=== PATIENT | female | born 1985 | race Caucasian/White ===

== ENCOUNTER 2017-12-29 03:37 | Emergency (ER) | payer OTHER ==
[~2017-12-29] VITALS: Ht 167.6 cm; Wt 68.0 kg
[2017-12-29 04:19] LABS: BASOPHILS ABSOLUTE AUTO 0.03 K/mm3 (0.00-0.23); BASOPHILS PERCENT AUTO 1 % (0-2); EOSINOPHILS ABSOLUTE AUTO 0.09 K/mm3 (0.00-0.68); EOSINOPHILS PERCENT AUTO 2 % (0-6); Hematocrit 38.1 % (33.0-51.0); IMMATURE GRAN ABSOLUTE AUTO 0.01 K/mm3 (0.00-0.10); IMMATURE GRAN PERCENT AUTO 0 % (0-1); LYMPHOCYTES ABSOLUTE AUTO 2.12 K/mm3 (0.84-5.20); LYMPHOCYTES PERCENT AUTO 42 % (21-46); MONOCYTES ABSOLUTE AUTO 0.34 K/mm3 (0.16-1.47); MONOCYTES PERCENT AUTO 7 % (4-13); Mean Corpuscular HGB 30.5 pg (26.0-34.0); Mean Corpuscular HGB Conc 34.1 g/dL (31.5-36.5); Mean Corpuscular Volume 89 fL (80-100); Mean Platelet Volume 10.1 fL (9.1-12.4); NEUTROPHILS ABSOLUTE AUTO 2.52 K/mm3 (1.96-9.15); NEUTROPHILS PERCENT AUTO 49 % (41-73); Platelet Count 175 K/mm3 (150-400); RDW Coefficient Variation 11.8 % (11.7-14.2); RDW Standard Deviation 37.8 fL (35.1-46.3); Red Blood Cell Count 4.26 M/mm3 (3.80-5.20); White Blood Cell Count 5.11 K/mm3 (4.00-11.30)
[2017-12-29 04:26] LABS: Source, Urine Clean Catch
[2017-12-29 04:34] LABS: Blood, Urine Neg (Neg); Glucose Qualitative, Urine Neg (Neg); Ketones, Urine Neg (Neg); Leukocyte Esterase, Urine Neg (Neg); Nitrite, Urine Pos (Neg); Protein, Urine 2+ (Neg); Specific Gravity, Urine 1.025 (1.003-1.022); Urobilinogen, Urine 4+ (Normal)
[2017-12-29 04:43] LABS: Bilirubin, Urine 3+ (Neg)
[2017-12-29 04:44] LABS: Appearance, Urine Clear (Clear); Bacteria Mod /hpf; Color, Urine Orange (P-Yellow); Red Blood Cells, Urine Not Seen /hpf (0-2); Squamous Epithelial Cells Few /hpf (Few); White Blood Cells, Urine Rare /hpf (0-5)
[2017-12-29 04:45] LABS: Mucus Light (0-Heavy)
[2017-12-29 04:52] LABS: Alanine Aminotransfer (ALT/SGP 16 U/L (12-78); Albumin, Blood 3.6 g/dL (3.4-5.0); Alk Phos 46 U/L (50-136); Anion Gap 4 mmol/L (6-16); Aspartate Aminotrans (AST/SGOT 13 U/L (12-37); Bilirubin, Total 0.6 mg/dL (0.1-1.0); Blood Urea Nitrogen 18 mg/dL (8-24); CO2, Blood 28 mmol/L (21-32); Calcium, Blood 8.4 mg/dL (8.5-10.1); Chloride, Blood 107 mmol/L (98-108); Creatinine, Blood 0.72 mg/dL (0.40-1.00); Globulin, Blood 3.5 g/dL (2.2-4.0); Glomerular Filtration Rate >60 (60-); Glucose, Blood 115 mg/dL (70-99); Potassium, Blood 3.4 mmol/L (3.5-5.5); Sodium, Blood 139 mmol/L (136-145); Total Protein, Blood 7.1 g/dL (6.4-8.2)
[2017-12-29] MEDS ORDERED: Norco 5-325 Ta1 EACH PO (05:06)
[2017-12-29] MEDS ORDERED: Cipro500 MG PO (05:06)
== END 2017-12-29 05:12 | disposition home or self-care (01) ==
LOC: ER 03:37
PROVIDERS: Emergency Medicine
DX: N12 Tubulo-interstitial nephritis, not specified as acute or chronic (principal); E87.6 Hypokalemia
CPT/HCPCS: 36415; 80053; 81001; 81025; 83690; 85025; 96361; 96374; 96375; 99284; J2270; J2405; J7030

== ENCOUNTER 2018-12-13 22:05 | Emergency (ER) | payer OTHER ==
[~2018-12-13] VITALS: Ht 167.6 cm; Wt 63.5 kg
[~2018-12-13 22:05] MED LIST: Cipro500 MG PO; Norco 5-325 Ta1 EACH PO
[2018-12-13 23:13] LABS: BASOPHILS ABSOLUTE AUTO 0.05 K/mm3 (0.00-0.23); BASOPHILS PERCENT AUTO 1 % (0-2); EOSINOPHILS ABSOLUTE AUTO 0.11 K/mm3 (0.00-0.68); EOSINOPHILS PERCENT AUTO 2 % (0-6); Hemoglobin 13.7 g/dL (11.5-16.0); IMMATURE GRAN ABSOLUTE AUTO 0.02 K/mm3 (0.00-0.10); IMMATURE GRAN PERCENT AUTO 0 % (0-1); LYMPHOCYTES ABSOLUTE AUTO 2.48 K/mm3 (0.84-5.20); LYMPHOCYTES PERCENT AUTO 38 % (21-46); MONOCYTES ABSOLUTE AUTO 0.45 K/mm3 (0.16-1.47); MONOCYTES PERCENT AUTO 7 % (4-13); Mean Corpuscular HGB 31.3 pg (26.0-34.0); Mean Corpuscular HGB Conc 33.4 g/dL (31.5-36.5); Mean Corpuscular Volume 94 fL (80-100); Mean Platelet Volume 9.9 fL (9.1-12.4); NEUTROPHILS ABSOLUTE AUTO 3.41 K/mm3 (1.96-9.15); NEUTROPHILS PERCENT AUTO 52 % (41-73); Platelet Count 196 K/mm3 (150-400); RDW Coefficient Variation 11.7 % (11.7-14.2); RDW Standard Deviation 40.6 fL (35.1-46.3); Red Blood Cell Count 4.38 M/mm3 (3.80-5.20); White Blood Cell Count 6.52 K/mm3 (4.00-11.30)
[2018-12-13 23:34] LABS: Alanine Aminotransfer (ALT/SGP 14 U/L (12-78); Albumin, Blood 3.6 g/dL (3.4-5.0); Albumin/Globulin Ratio 1.1 (0.8-1.8); Alk Phos 54 U/L (50-136); Anion Gap 6 mmol/L (6-16); Aspartate Aminotrans (AST/SGOT 11 U/L (12-37); Bilirubin, Total 0.6 mg/dL (0.1-1.0); Blood Urea Nitrogen 16 mg/dL (8-24); Bun/Creatinine Ratio 19.3 (12.0-20.0); CO2, Blood 27 mmol/L (21-32); Calcium, Blood 8.2 mg/dL (8.5-10.1); Chloride, Blood 107 mmol/L (98-108); Creatinine, Blood 0.83 mg/dL (0.40-1.00); Globulin, Blood 3.3 g/dL (2.2-4.0); Glomerular Filtration Rate >60 (60-); Glucose, Blood 91 mg/dL (70-99); Potassium, Blood 4.2 mmol/L (3.5-5.5); Sodium, Blood 140 mmol/L (136-145); Total Protein, Blood 6.9 g/dL (6.4-8.2)
[2018-12-13 23:34] LABS: Source, Urine Clean Catch
[2018-12-13 23:37] LABS: Bilirubin, Urine Neg (Neg); Blood, Urine Neg (Neg); Glucose Qualitative, Urine Neg (Neg); Ketones, Urine 1+ (Neg); Leukocyte Esterase, Urine 1+ (Neg); Nitrite, Urine Pos (Neg); Protein, Urine 2+ (Neg); Specific Gravity, Urine 1.025 (1.003-1.022); Urobilinogen, Urine NORM (Normal)
[2018-12-13 23:43] LABS: Color, Urine Yellow (P-Yellow)
[2018-12-13 23:44] LABS: Appearance, Urine Clear (Clear); Bacteria Few /hpf; Mucus Light (0-Heavy); Red Blood Cells, Urine Not Seen /hpf (0-2); Squamous Epithelial Cells Rare /hpf (Few); White Blood Cells, Urine 0-2 /hpf (0-5)
== END 2018-12-14 01:12 | disposition home or self-care (01) ==
LOC: ER 22:05
PROVIDERS: Emergency Medicine
DX: N12 Tubulo-interstitial nephritis, not specified as acute or chronic (principal)
CPT/HCPCS: 36415; 80053; 81001; 81025; 85025; 87086; 96365; 96375; 99284-25; J0696; J1885; J2405; J7030

== ENCOUNTER 2019-06-13 15:36 | Emergency (ER) | payer OTHER ==
[~2019-06-13] VITALS: Ht 167.6 cm; Wt 65.8 kg
[2019-06-13 16:30] LABS: Source, Urine Clean Catch
[2019-06-13 16:32] LABS: Bilirubin, Urine Neg (Neg); Blood, Urine Neg (Neg); Glucose Qualitative, Urine Neg (Neg); Ketones, Urine Neg (Neg); Leukocyte Esterase, Urine Neg (Neg); Nitrite, Urine Neg (Neg); Protein, Urine Neg (Neg); Urobilinogen, Urine NORM (Normal)
[2019-06-13 16:52] LABS: Color, Urine Yellow (P-Yellow)
[2019-06-13 16:53] LABS: Appearance, Urine Clear (Clear)
[2019-06-13 17:24] LABS: BASOPHILS ABSOLUTE AUTO 0.04 K/mm3 (0.00-0.23); BASOPHILS PERCENT AUTO 1 % (0-2); EOSINOPHILS PERCENT AUTO 2 % (0-6); Hematocrit 41.7 % (33.0-51.0); IMMATURE GRAN PERCENT AUTO 0 % (0-1); LYMPHOCYTES ABSOLUTE AUTO 2.39 K/mm3 (0.84-5.20); LYMPHOCYTES PERCENT AUTO 36 % (21-46); MONOCYTES ABSOLUTE AUTO 0.51 K/mm3 (0.16-1.47); MONOCYTES PERCENT AUTO 8 % (4-13); Mean Corpuscular HGB Conc 33.6 g/dL (31.5-36.5); Mean Corpuscular Volume 92 fL (80-100); Mean Platelet Volume 10.2 fL (9.1-12.4); NEUTROPHILS ABSOLUTE AUTO 3.62 K/mm3 (1.96-9.15); NEUTROPHILS PERCENT AUTO 54 % (41-73); Platelet Count 203 K/mm3 (150-400); RDW Standard Deviation 40.8 fL (35.1-46.3); Red Blood Cell Count 4.52 M/mm3 (3.80-5.20); White Blood Cell Count 6.66 K/mm3 (4.00-11.30)
[2019-06-13 17:54] LABS: Alanine Aminotransfer (ALT/SGP 17 U/L (12-78); Albumin, Blood 3.7 g/dL (3.4-5.0); Albumin/Globulin Ratio 1.1 (0.8-1.8); Alk Phos 49 U/L (50-136); Anion Gap 8 mmol/L (6-16); Aspartate Aminotrans (AST/SGOT 12 U/L (12-37); Bilirubin, Total 0.8 mg/dL (0.1-1.0); Blood Urea Nitrogen 13 mg/dL (8-24); Bun/Creatinine Ratio 17.5 (12.0-20.0); CO2, Blood 27 mmol/L (21-32); Calcium, Blood 8.5 mg/dL (8.5-10.1); Chloride, Blood 107 mmol/L (98-108); Creatinine, Blood 0.74 mg/dL (0.40-1.00); Globulin, Blood 3.5 g/dL (2.2-4.0); Glomerular Filtration Rate >60 (60-); Glucose, Blood 88 mg/dL (70-99); Sodium, Blood 142 mmol/L (136-145); Total Protein, Blood 7.2 g/dL (6.4-8.2)
== END 2019-06-13 20:07 | disposition home or self-care (01) ==
LOC: ER 15:36
PROVIDERS: Physician Assistant
DX: N83.201 Unspecified ovarian cyst, right side (principal)
CPT/HCPCS: 36415; 74176; 80053; 81003; 81025; 83690; 85025; 99284-25

== ENCOUNTER 2021-08-31 18:59 | Emergency (ER) | payer OTHER ==
[~2021-08-31] VITALS: Ht 167.6 cm; Wt 68.0 kg
[2021-08-31 22:32] LABS: SARS-Cov-2 (COVID-19) PCR, MMC POSITIVE (NEGATIVE)
== END 2021-08-31 21:56 | disposition left against medical advice (07) ==
LOC: ER 18:59
PROVIDERS: Physician Assistant
DX: U07.1 COVID-19 (principal); Z53.21 Procedure and treatment not carried out due to patient leaving prior to being seen by health care provider
CPT/HCPCS: 93005; 93010; 99283-25; U0004

== ENCOUNTER → 2022-05-06 | Outpatient (CLI) | payer OTHER | END | disposition home or self-care (01) | LOC: LAB SHORT 14:00 | DX: R10.2 Pelvic and perineal pain (principal) | CPT/HCPCS: 87086 ==

== ENCOUNTER 2023-08-02 22:39 | Emergency (ER) | payer OTHER ==
[~2023-08-02] VITALS: Ht 167.6 cm; Wt 65.8 kg
[2023-08-02 23:32] LABS: Source, Urine Clean Catch
[2023-08-02 23:34] LABS: BASOPHILS ABSOLUTE AUTO 0.03 K/mm3 (0.00-0.23); BASOPHILS PERCENT AUTO 1 % (0-2); EOSINOPHILS ABSOLUTE AUTO 0.07 K/mm3 (0.00-0.68); EOSINOPHILS PERCENT AUTO 1 % (0-6); Hematocrit 36.1 % (33.0-51.0); Hemoglobin 12.5 g/dL (11.5-16.0); IMMATURE GRAN ABSOLUTE AUTO 0.01 K/mm3 (0.00-0.10); IMMATURE GRAN PERCENT AUTO 0 % (0-1); LYMPHOCYTES ABSOLUTE AUTO 2.48 K/mm3 (0.84-5.20); LYMPHOCYTES PERCENT AUTO 37 % (21-46); MONOCYTES ABSOLUTE AUTO 0.48 K/mm3 (0.16-1.47); MONOCYTES PERCENT AUTO 7 % (4-13); Mean Corpuscular HGB 31.2 pg (26.0-34.0); Mean Corpuscular HGB Conc 34.6 g/dL (31.5-36.5); Mean Corpuscular Volume 90 fL (80-100); Mean Platelet Volume 10.1 fL (9.1-12.4); NEUTROPHILS ABSOLUTE AUTO 3.57 K/mm3 (1.96-9.15); NEUTROPHILS PERCENT AUTO 54 % (41-73); Platelet Count 198 K/mm3 (150-400); RDW Coefficient Variation 11.4 % (11.7-14.2); RDW Standard Deviation 37.5 fL (35.1-46.3); Red Blood Cell Count 4.01 M/mm3 (3.80-5.20); White Blood Cell Count 6.64 K/mm3 (4.00-11.30)
[2023-08-02 23:35] LABS: Bilirubin, Urine Neg (Neg); Blood, Urine Neg (Neg); Glucose Qualitative, Urine Neg (Neg); Ketones, Urine Neg (Neg); Leukocyte Esterase, Urine Neg (Neg); Nitrite, Urine Neg (Neg); Protein, Urine Neg (Neg); Urobilinogen, Urine NORM (Normal)
[2023-08-02 23:41] LABS: Appearance, Urine Clear (Clear); Color, Urine Pale Yellow (P-Yellow)
[2023-08-02 23:52] LABS: Albumin, Blood 3.4 g/dL (3.4-5.0); Bilirubin, Total 0.6 mg/dL (0.1-1.0); Bun/Creatinine Ratio 17.4 (12.0-20.0); Calcium, Blood 8.5 mg/dL (8.5-10.1); Creatinine, Blood 0.81 mg/dL (0.40-1.00); Globulin, Blood 3.3 g/dL (2.2-4.0); Total Protein, Blood 6.7 g/dL (6.4-8.2)
[2023-08-03 01:00] VITALS: BP 114/85
[2023-08-03 02:01] LABS: Candida species (DNA Probe) Positive (NEGATIVE); G. vaginalis (DNA Probe) Negative (NEGATIVE); T. vaginalis (DNA Probe) Negative (NEGATIVE)
[2023-08-03] MEDS ORDERED: Diflucan150 MG PO (03:44)
[2023-08-05 04:09] LABS: CHLAMYDIA TRACHOMATIS, NAA Negative (Negative); NEISSERIA GONORRHOEAE, NAA Negative (Negative)
== END 2023-08-03 01:10 | disposition home or self-care (01) ==
LOC: ER 22:39
PROVIDERS: Physician Assistant; Student in an Organized Health Care Education/Training Program
DX: B37.31 Acute candidiasis of vulva and vagina (principal); R30.0 Dysuria
CPT/HCPCS: 80053; 81003; 81025; 85025; 87480; 87491; 87510; 87591; 87660; 99283; A9270

== ENCOUNTER 2023-10-14 05:24 | Emergency (ER) | payer OTHER ==
[~2023-10-14] VITALS: Ht 167.6 cm; Wt 65.8 kg
[~2023-10-14 05:24] MED LIST changes: +Diflucan150 MG PO
[2023-10-14 06:21] LABS: Source, Urine Clean Catch
[2023-10-14 06:32] LABS: Appearance, Urine Hazy (Clear); Bilirubin, Urine Neg (Neg); Blood, Urine 4+ (Neg); Color, Urine Yellow (P-Yellow); Glucose Qualitative, Urine Neg (Neg); Ketones, Urine Neg (Neg); Leukocyte Esterase, Urine 3+ (Neg); Nitrite, Urine Neg (Neg); Protein, Urine 2+ (Neg); Specific Gravity, Urine 1.015 (1.003-1.022); Urobilinogen, Urine NORM (Normal)
[2023-10-14 06:49] LABS: Hyaline Casts 0-2 /lpf (0-2)
[2023-10-14 06:51] LABS: White Blood Cells, Urine 25-50 /hpf (0-5)
[2023-10-14 06:52] LABS: Bacteria Many /hpf; Squamous Epithelial Cells Rare /hpf (Few); Transitional Epithelial Cells Rare /hpf (0-Rare)
[2023-10-14 06:53] LABS: Mucus Light (0-Heavy)
[2023-10-14 07:15] VITALS: BP 129/70
[2023-10-14] MEDS ORDERED: SULTRIDS PO (07:24)
[2023-10-14] MEDS ORDERED: Diflucan150 MG PO (07:24)
== END 2023-10-14 07:32 | disposition home or self-care (01) ==
LOC: ER 05:24
PROVIDERS: Emergency Medicine
DX: N39.0 Urinary tract infection, site not specified (principal); Z86.19 Personal history of other infectious and parasitic diseases
CPT/HCPCS: 81001; 87077; 87086; 87186; 99283; A9270

== ENCOUNTER → 2023-11-15 | Outpatient (CLI) | payer OTHER ==
[~2023-11-15] MED LIST changes: +SULTRIDS PO
[2023-11-16 12:00] LABS: Candida species (DNA Probe) Negative (NEGATIVE); G. vaginalis (DNA Probe) Negative (NEGATIVE); T. vaginalis (DNA Probe) Negative (NEGATIVE)
== END ==
LOC: LAB 17:09 → LAB SHORT 17:09
PROVIDERS: Advanced Practice Midwife
DX: N76.0 Acute vaginitis (principal); N39.0 Urinary tract infection, site not specified
CPT/HCPCS: 87077; 87086; 87186; 87480; 87510; 87660

== ENCOUNTER → 2023-11-28 | Outpatient (CLI) | payer OTHER | END | disposition home or self-care (01) | LOC: LAB SHORT 16:50 → LAB 16:50 | DX: N39.0 Urinary tract infection, site not specified (principal) | CPT/HCPCS: 87086 ==

== ENCOUNTER → 2024-02-26 | Outpatient (CLI) | payer OTHER ==
[2024-02-26 15:34] LABS: Bacterial Vaginosis PCR Negative (NEGATIVE); Candida Group, PCR NOT DETECTED (NOT DETECT); Candida glabrata-krusei, PCR NOT DETECTED (NOT DETECT)
== END ==
LOC: LAB SHORT 13:28 → LAB 13:28
PROVIDERS: Nurse Practitioner
DX: N30.00 Acute cystitis without hematuria (principal); R30.0 Dysuria
CPT/HCPCS: 87077; 87086; 87186; 87481; 87661; 87801

== ENCOUNTER → 2024-05-21 | Outpatient (CLI) | payer OTHER | END | disposition home or self-care (01) | LOC: LAB 10:20 → LAB SHORT 10:20 | DX: R30.0 Dysuria (principal) | CPT/HCPCS: 87077; 87086; 87186 ==

== ENCOUNTER → 2024-06-15 | Outpatient (CLI) | payer OTHER ==
[2024-06-15 18:36] LABS: Bacteria Rare /hpf; Red Blood Cells, Urine 0-2 /hpf (0-2); Squamous Epithelial Cells Rare /hpf (Few); White Blood Cells, Urine 0-2 /hpf (0-5)
== END | disposition home or self-care (01) ==
LOC: LAB SHORT 12:37 → LAB 12:37
PROVIDERS: Nurse Practitioner
DX: R10.2 Pelvic and perineal pain (principal)
CPT/HCPCS: 81015; 87086; 87481; 87661; 87801

== ENCOUNTER → 2024-06-15 | Outpatient (CLI) | payer OTHER ==
[2024-06-15 19:48] LABS: Bacterial Vaginosis PCR Negative (NEGATIVE); Candida Group, PCR NOT DETECTED (NOT DETECT); Candida glabrata-krusei, PCR NOT DETECTED (NOT DETECT)
== END | disposition home or self-care (01) ==
LOC: LAB 12:25 → LAB SHORT 12:25
PROVIDERS: Nurse Practitioner
DX: R10.2 Pelvic and perineal pain (principal)
CPT/HCPCS: 87481; 87661; 87801

== ENCOUNTER 2024-07-22 06:23 | Day surgery (SDC) | payer OTHER ==
[~2024-07-22] VITALS: Ht 167.6 cm; Wt 69.5 kg
[2024-07-22] VITALS (8 sets, daily range): BP systolic 105–123; BP diastolic 72–84
[~2024-07-22 06:23] MED LIST changes: +Lactated Ringer's 1,000 ML IV SCH
[2024-07-22] MEDS ORDERED: Hair, Skin & N1 EACH PO (06:40)
[2024-07-22] MEDS ORDERED: PROBIOTIC1 EA15 PO (06:40)
[2024-07-22] MEDS ORDERED: URITRAX47 GM PO (06:41)
[2024-07-22] MEDS ORDERED: Midazolam HCl 1MG / ML 2ML Vial ONE (07:06)
[2024-07-22] MEDS ORDERED: FentaNYL Citrate 50 MCG/ML 2 ML Injection ONE (07:06)
[2024-07-22] MEDS ORDERED: propofoL 20 ML IV ONE ×2 (07:07→08:08)
[2024-07-22] MEDS ORDERED: Lidocaine HCl 2% 20 ML MDV ONE (07:08)
[2024-07-22] MEDS ORDERED: Ondansetron HCl 2 MG / ML 2ML Vial ONE ×2 (07:08→07:40)
[2024-07-22] MEDS ORDERED: Rocuronium Bromide 10 MG/ML 5ML Injection IV ONE (07:08)
[2024-07-22] MEDS ORDERED: Dexamethasone Sod Phos 10 MG/ML 1ML VIAL ONE (07:08)
--- NOTE | 2024-07-22 07:12 | NUR ---
Ambulatory in Day Surgery History, Chart, Medications and Allergies reviewed before start of procedure. Pre-Op teaching done. Pt verbalizes understanding. Patient States Post-Procedure ride home has been arranged.
[2024-07-22] MEDS ORDERED: Bupivacaine 0.5% HCl 5 MG/ML 30MLVIAL ONE (07:13)
[2024-07-22] MEDS ORDERED: Acetaminophen 500 MG Tab PO SCH (07:20)
[2024-07-22] MEDS ORDERED: Scopolamine Hydrobromide Patch TD SCH (07:20)
--- NOTE | 2024-07-22 08:04 | NUR ---
07/22/24 0804 Courtney Roberts NO INTRAOPERATIVE ANTIBIOTICS ORDERED.
[2024-07-22] MEDS ORDERED: Sugammadex Sodium 200 MG/2ML SDV (100 MG/ML) ONE (08:08)
[2024-07-22] MEDS ORDERED: Ketorolac Tromethamine 30mg Vial ONE (08:10)
[2024-07-22] MEDS ORDERED: Ondansetron HCl 2 MG / ML 2ML Vial IV PRN (08:35)
[2024-07-22] MEDS ORDERED: OxyCODONE 5 mg/Acetamin 325 mg TABLET PO PRN (08:35)
--- NOTE | 2024-07-22 09:29 | NUR ---
Discharge instructions reviewed with patient. Patient verbalizes understanding. Copy given to patient to take home. Dressings c/d/i, Prescriptions filled and at home already. Patient States Post-Procedure ride home has been arranged. Discharged via wheelchair to private car for ride home.
== END 2024-07-22 09:30 | disposition home or self-care (01) ==
LOC: ORSCMMR 06:23 → ORD 07:30 → ORSCMMR 07:30
PROVIDERS: Obstetrics & Gynecology
PROC: 0UB74ZZ Excision of Bilateral Fallopian Tubes, Percutaneous Endoscopic Approach (ICD-10-PCS; principal; 2024-07-22 07:30)
DX: Z30.2 Encounter for sterilization (principal)
CPT/HCPCS: 88302; A9270; J1100; J1885; J2250; J2405; J2704; J3010; J7120

== ENCOUNTER → 2024-10-04 | Outpatient (CLI) | payer OTHER ==
[~2024-10-04] MED LIST changes: +Hair, Skin & N1 EACH PO; -Lactated Ringer's 1,000 ML IV SCH; +PROBIOTIC1 EA15 PO; +URITRAX47 GM PO
[2024-10-04 15:11] LABS: Bacterial Vaginosis PCR Negative (NEGATIVE); Candida Group, PCR NOT DETECTED (NOT DETECT); Candida glabrata-krusei, PCR NOT DETECTED (NOT DETECT)
== END ==
LOC: LAB 11:34 → LAB SHORT 11:34
PROVIDERS: Nurse Practitioner Family
DX: R30.0 Dysuria (principal); N89.8 Other specified noninflammatory disorders of vagina
CPT/HCPCS: 87077; 87086; 87186; 87481; 87661; 87801

== ENCOUNTER → 2024-11-06 | Outpatient (CLI) | payer OTHER ==
[2024-11-06 15:06] LABS: Bacterial Vaginosis PCR Negative (NEGATIVE); Candida Group, PCR NOT DETECTED (NOT DETECT); Candida glabrata-krusei, PCR NOT DETECTED (NOT DETECT)
== END | disposition home or self-care (01) ==
LOC: LAB 10:13 → LAB SHORT 10:13
PROVIDERS: Nurse Practitioner Family
DX: R10.2 Pelvic and perineal pain (principal)
CPT/HCPCS: 87086; 87481; 87661; 87801

== ENCOUNTER → 2025-01-10 | Outpatient (CLI) | payer OTHER ==
[2025-01-17 11:32] LABS: HPV HIGH RISK BY TMA Not Detected; HPV SOURCE Cervical
== END | disposition home or self-care (01) ==
LOC: LAB SHORT 13:15 → LAB 13:15
PROVIDERS: Advanced Practice Midwife
DX: Z01.419 Encounter for gynecological examination (general) (routine) without abnormal findings (principal)
CPT/HCPCS: 87624; G0123

== ENCOUNTER → 2025-01-14 | Outpatient (CLI) | payer OTHER | LOC: LAB 08:15 → LAB SHORT 08:15 | DX: R10.84 Generalized abdominal pain (principal) | CPT/HCPCS: 87086 ==

== ENCOUNTER 2025-07-19 23:59 | Emergency (ER) | payer OTHER ==
[~2025-07-19] VITALS: Ht 167.6 cm; Wt 70.8 kg
[2025-07-20 00:32] VITALS: BP 131/81
[2025-07-20 01:13] LABS: BASOPHILS ABSOLUTE AUTO 0.04 K/mm3 (0.00-0.23); BASOPHILS PERCENT AUTO 1 % (0-2); EOSINOPHILS ABSOLUTE AUTO 0.14 K/mm3 (0.00-0.68); EOSINOPHILS PERCENT AUTO 2 % (0-6); Hematocrit 37.6 % (33.0-51.0); Hemoglobin 12.9 g/dL (11.5-16.0); IMMATURE GRAN ABSOLUTE AUTO 0.01 K/mm3 (0.00-0.10); IMMATURE GRAN PERCENT AUTO 0 % (0-1); LYMPHOCYTES ABSOLUTE AUTO 2.68 K/mm3 (0.84-5.20); LYMPHOCYTES PERCENT AUTO 37 % (21-46); MONOCYTES ABSOLUTE AUTO 0.55 K/mm3 (0.16-1.47); MONOCYTES PERCENT AUTO 8 % (4-13); Mean Corpuscular HGB Conc 34.3 g/dL (31.5-36.5); Mean Corpuscular Volume 90 fL (80-100); NEUTROPHILS ABSOLUTE AUTO 3.74 K/mm3 (1.96-9.15); NEUTROPHILS PERCENT AUTO 52 % (41-73); NRBC ABSOLUTE 0.00 K/mm3 (0.00-0.02); NRBC Auto 0.0 /100 WBC (0.0-0.2); Platelet Count 169 K/mm3 (150-400); RDW Coefficient Variation 12.1 % (11.7-14.2); RDW Standard Deviation 39.3 fL (35.1-46.3)
[2025-07-20 01:31] LABS: Alanine Aminotransfer (ALT/SGP 15.0 U/L (12-78); Albumin, Blood 3.4 g/dL (3.4-5.0); Albumin/Globulin Ratio 1.1 (0.8-1.8); Anion Gap 7.0 mmol/L (3-11); Aspartate Aminotrans (AST/SGOT 14.0 U/L (12-37); Bilirubin, Total 0.5 mg/dL (0.1-1.0); Blood Urea Nitrogen 17.0 mg/dL (8-24); CO2, Blood 28.0 mmol/L (21-32); Calcium, Blood 7.9 mg/dL (8.5-10.1); Chloride, Blood 106.0 mmol/L (98-108); Creatinine, Blood 0.85 mg/dL (0.40-1.00); Globulin, Blood 3.2 g/dL (2.2-4.0); Glucose, Blood 97.0 mg/dL (70-99); Potassium, Blood 3.8 mmol/L (3.5-5.5); Sodium, Blood 137.0 mmol/L (136-145); Total Protein, Blood 6.6 g/dL (6.4-8.2)
[2025-07-20 01:42] LABS: Source, Urine Clean Catch
[2025-07-20 01:45] LABS: Bilirubin, Urine Neg (Neg); Glucose Qualitative, Urine Neg (Neg); Ketones, Urine 1+ (Neg); Leukocyte Esterase, Urine Neg (Neg); Protein, Urine Neg (Neg); Specific Gravity, Urine 1.010 (1.003-1.022); Urobilinogen, Urine NORM (Normal)
[2025-07-20 02:04] LABS: Color, Urine Yellow (P-Yellow)
== END 2025-07-20 03:48 | disposition home or self-care (01) ==
LOC: ER 23:59
PROVIDERS: Emergency Medicine
DX: R10.2 Pelvic and perineal pain (principal); E86.0 Dehydration; Z79.899 Other long term (current) drug therapy; Z88.5 Allergy status to narcotic agent
CPT/HCPCS: 80053; 81003; 81025; 83690; 85025; 99283

== ENCOUNTER → 2025-09-11 | Outpatient (CLI) | payer OTHER ==
[2025-09-11 12:27] LABS: Bacterial Vaginosis PCR Negative (NEGATIVE); Candida Group, PCR NOT DETECTED (NOT DETECT); Candida glabrata-krusei, PCR NOT DETECTED (NOT DETECT)
[2025-09-11 13:00] LABS: Chlamydia Trachomatis Vaginal NOT DETECTED (NOT DETECT); Neisseria Gonorrhoea Vaginal NOT DETECTED (NOT DETECT)
== END ==
LOC: LAB SHORT 09:26 → LAB 09:26
PROVIDERS: Nurse Practitioner Family
DX: R30.0 Dysuria (principal)
CPT/HCPCS: 81515; 87491; 87591

== ENCOUNTER → 2025-11-05 | Outpatient (CLI) | payer OTHER ==
[2025-11-06 13:18] LABS: Bacterial Vaginosis PCR Negative (NEGATIVE); Candida Group, PCR NOT DETECTED (NOT DETECT); Candida glabrata-krusei, PCR NOT DETECTED (NOT DETECT)
== END ==
LOC: LAB SHORT 12:09 → LAB 12:09
PROVIDERS: Nurse Practitioner
DX: N30.90 Cystitis, unspecified without hematuria (principal); N89.8 Other specified noninflammatory disorders of vagina
CPT/HCPCS: 81515

== ENCOUNTER → 2025-11-06 | Outpatient (CLI) | payer OTHER | LOC: LAB SHORT 13:31 → LAB 13:31 | DX: N30.90 Cystitis, unspecified without hematuria (principal) | CPT/HCPCS: 87086 ==